=== PATIENT | female | born 1975 | race Caucasian/White ===

== ENCOUNTER 2018-12-29 16:37 | Outpatient (CLI) | payer BC ==
--- NOTE | 2018-12-29 18:07 | RAD ---
CERVICAL SPINE SERIES TEN VIEWS INCLUDING OBLIQUE AND FLEXION AND EXTENSIONS: 12/29/18 HISTORY: Chronic neck pain. The vertebral bodies are normal in height. There is minimal disc narrowing at C5-6. There is moderate disc narrowing at C6-7. 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 Degenerative facet changes are present. No abnormal motion is seen in the flexion or extension views. I do not appreciate any signi ficant foraminal narrowing. IMPRESSION: Moderate arthritic changes of the spine. POS: MATT
== END 2018-12-29 16:38 | disposition home or self-care (01) ==
LOC: SCSRAD 16:37
PROVIDERS: ATTEND Internal Medicine Rheumatology
DX: M54.2 Cervicalgia (principal); M06.00 Rheumatoid arthritis without rheumatoid factor, unspecified site; M47.812 Spondylosis without myelopathy or radiculopathy, cervical region; Z79.899 Other long term (current) drug therapy
CPT/HCPCS: 72052